=== PATIENT | male | born 1965 | race Hispanic/Latino ===

== ENCOUNTER 2016-08-24 12:04 | Emergency (ER) | payer MEDICARE ==
[2016-08-24 12:05] VITALS: BMI 25.0
[2016-08-24 12:16] VITALS: RESP 16; TEMP 98
--- NOTE | 2016-08-24 14:31 | C.PDOC ---
History Of Present Illness The patient, a 51 y/o male whose PMHx includes depression (taking medication as prescribed), presents to the ED for evaluation after he slipped and fell on the street earlier today. Patient states he fell onto his left side and now has pain to his left elbow, left thorax, and left hip region with associated bruising. Patient rates his pain 6/10 in severity, dull, constant, and is exacerbated with palpitation and movement. He states the pain is non-radiating. Patient denies fever, chills, headache, nausea, vomiting, head injury, LOC. Time Seen by Provider: 08/24/16 12:25 Chief Complaint (Nursing): Lower Extremity Problem/Injury History Per: Patient History/Exam Limitations: no limitations Onset/Duration Of Symptoms: Hrs Current Symptoms Are (Timing): Still Present Pain Scale Rating Of: 6 Additional History Per: Patient - Hip Description Of Injury: Fell, Tripped Past Medical History Reviewed: Historical Data, Nursing Documentation, Vital Signs Vital Signs: Last Vital Signs Temp 98.0 F 08/24/16 12:15 Pulse 74 08/24/16 14:40 Resp 16 08/24/16 14:40 BP 121/74 08/24/16 14:40 Pulse Ox 99 08/24/16 22:23 - Medical History PMH: Anemia, Anxiety, Asthma (NO ATTACKS), Bipolar Disorder, Bronchitis, Depression Surgical History: Hernia Repair (ventral) - [facility] Procedures CLOSED ENDOSCOPIC BIOPSY OF LARGE INTESTINE (02/22/05) INSERT INDWELLING CATH (10/13/11) Family History: States: Unknown Family Hx - Social History Hx Alcohol Use: No Hx Substance Use: No - Immunization History Hx Tetanus Toxoid Vaccination: No Hx Influenza Vaccination: No Hx Pneumococcal Vaccination: No Review Of Systems Except As Marked, All Systems Reviewed And Found Negative. Constitutional: Negative for: Fever, Chills Musculoskeletal: Positive for: Other (left hip, thorax and elbow pain with bruising ) Neurological: Negative for: Headache, Other (no LOC, head injury ) Physical Exam - Physical Exam Appears: Non-toxic, No Acute Distress, Unkempt, Other (+disheveled ) Skin: Warm, Dry, Ecchymosis (left elbow, left hip ) Head: Atraumatic, Normacephalic, No Tenderness, No Swelling Eye(s): bilateral: Normal Inspection, PERRL, EOMI Ear(s): Bilateral: Normal Nose: Normal, No Discharge Oral Mucosa: Moist Throat: Normal, No Erythema, No Exudate Neck: Normal ROM, Supple Chest: Symmetrical, No Deformity, Tenderness (alongside left thoracic region ) Cardiovascular: Rhythm Regular, No Murmur Respiratory: Normal Breath Sounds, No Rales, No Rhonchi, No Wheezing Extremity: Tenderness (left elbow, left hip ), No Calf Tenderness, Capillary Refill (less than 2 seconds ), No Deformity, Swelling (left elbow ) Pulses: Left Femoral: Normal, Right Femoral: Normal Neurological/Psych: Oriented x3, Normal Speech, Normal Cognition Gait: Steady ED Course And Treatment O2 Sat by Pulse Oximetry: 99 (on RA) Pulse Ox Interpretation: Normal - Other Rad XR ribs and chest X-Ray: Interpreted by Me, Viewed By Me, Read By Radiologist Interpretation: Accession No. : [id number]. Patient Name / ID : CELESTINE ZAPATA / [id number]. Exam Date : 08/24/2016 13:10:28 ( Approved ). Study Comment : Sex / Age : M / 51Y. Creator : Lynn Ferrara. Dictator : Lynn Ferrara. Space Operations : Commission Clerk : Lynn Ferrara. Approver2 : Report Date : 08/24/2016 15:19:16. My Comment : . PROCEDURE: Radiographs of the Chest and Left Ribs. HISTORY: fall. COMPARISON: None available. TECHNIQUE: Frontal radiograph of the chest and multiple oblique radiographs of the left ribs were obtained. FINDINGS: LEFT RIBS: No fracture or focal lesion visualized. LUNGS: Clear. PLEURA: No pneumothorax or pleural fluid. CARDIOVASCULAR: Normal sized heart. No pulmonary vascular congestion. OTHER FINDINGS: None. IMPRESSION: No evidence of acute displaced fracture at the left ribs. No evidence of pleural effusion or pneumothorax in the left chest. hips and pelvis XR X-Ray: Interpreted by Me, Viewed By Me, Read By Radiologist Interpretation: Accession No. : [id number]. Patient Name / ID : CELESTINE ZAPATA / [id number]. Exam Date : 08/24/2016 13:15:03 ( Approved ). Study Comment : Sex / Age : M / 51Y. Creator : Lynn Ferrara. Dictator : Lynn Ferrara. Space Operations : Commission Clerk : Lynn Ferrara. Approver2 : Report Date : 08/24/2016 15:11:26. My Comment : . PROCEDURE: Left Hip X-ray Radiographs. HISTORY: fall. COMPARISON: None. FINDINGS: BONES: Normal. No fracture. JOINTS: Normal. SOFT TISSUES: Normal. OTHER FINDINGS: None. IMPRESSION: No evidence of acute fracture or dislocation. Medical Decision Making Medical Decision Making: Impression: 51 y/o male with left elbow, thorax, and hip pain s/p fall Plan: * Left ribs and chest XR * Hips XR * Motrin PO * Tylenol PO * reassess and disposition Progress: XR results show no evidence of fracture. Patient received Motrin PO and Tylenol PO On reassessment, patient is resting comfortably, showing no signs of distress, and is ambulatory in the ED. Patient is stable for discharge and is advised to follow up with his PMD within 1-2 days for further evaluation. Disposition Counseled Patient/Family Regarding: Studies Performed, Diagnosis, Need For Followup, Rx Given - Disposition Disposition: HOME/ ROUTINE Disposition Time: 14:29 Condition: STABLE Prescriptions: Ibuprofen [Motrin] 600 mg PO TID #15 tab traMADol/Acetaminophen [Ultracet 37.5/325 mg] 1 tab PO TID PRN #10 tab PRN Reason: pain Instructions: Hip Contusion (ED), Rib Contusion (ED) Forms: General Discharge Instructions - POA Present On Arrival: None - Clinical Impression Clinical Impression: Rib pain, Fall, Contusion of left hip region - Scribe Statement The provider has reviewed the documentation as recorded by the Scribe (Sherrill Gonzalez) Provider Attestation: All medical record entries made by the Scribe were at my direction and personally dictated by me. I have reviewed the chart and agree that the record accurately reflects my personal performance of the history, physical exam, medical decision making, and the department course for this patient. I have also personally directed, reviewed, and agree with the discharge instructions and disposition.
[2016-08-24 14:40] VITALS: BP 121/74; PULSE 74
--- NOTE | 2016-08-24 15:13 | RAD ---
PROCEDURE: Left Hip X-ray Radiographs. HISTORY: fall COMPARISON: None. FINDINGS: BONES: Normal. No fracture. JOINTS: Normal. SOFT TISSUES: Normal. OTHER FINDINGS: None. IMPRESSION: No evidence of acute fracture or dislocation.
--- NOTE | 2016-08-24 15:21 | RAD ---
PROCEDURE: Radiographs of the Chest and Left Ribs. HISTORY: fall COMPARISON: None available. TECHNIQUE: Frontal radiograph of the chest and multiple oblique radiographs of the left ribs were obtained. FINDINGS: LEFT RIBS: No fracture or focal lesion visualized. LUNGS: Clear. PLEURA: No pneumothorax or pleural fluid. CARDIOVASCULAR: Normal sized heart. No pulmonary vascular congestion. OTHER FINDINGS: None. IMPRESSION: No evidence of acute displaced fracture at the left ribs. No evidence of pleural effusion or pneumothorax in the left chest.
[2016-08-24 18:23] VITALS: O2SAT 99
== END 2016-08-24 14:40 | disposition home or self-care (01) ==
LOC: C.ER 12:04
DX: S70.02XA Contusion of left hip, initial encounter (principal); R07.81 Pleurodynia; W01.0XXA Fall on same level from slipping, tripping and stumbling without subsequent striking against object, initial encounter; Y92.410 Unspecified street and highway as the place of occurrence of the external cause

== ENCOUNTER 2016-12-27 14:07 | Emergency (ER) | payer MEDICARE ==
[2016-12-27 14:16] VITALS: BMI 22.7
[2016-12-27 14:17] VITALS: O2SAT 98
[2016-12-27] MEDS ORDERED: Alum-Mag Hydrox-Simethicone Susp (30 mL) PO STA (15:25)
[2016-12-27 15:39] LABS: BASO % 0.3 % (0.0-2.0); EOS % 0.7 % (0.0-4.0); HEMATOCRIT 28.6 % (35.0-51.0); LYMPH # 0.4 K/uL (1.0-4.3); LYMPH % 6.8 % (20.0-40.0); MEAN CELL VOLUME 88.5 fL (80.0-94.0); MEAN CORPUSCULAR HEMOGLOBIN 29.9 pg (27.0-31.0); MEAN CORPUSCULAR HGB CONC 33.8 g/dL (33.0-37.0); MEAN PLATELET VOLUME 7.8 fL (7.2-11.7); MONO # 0.3 K/uL (0.0-0.8); MONO % 4.5 % (0.0-10.0); PLATELET COUNT 248 K/uL (130-400); RED CELL DISTRIBUTION WIDTH 13.7 % (11.5-14.5)
[2016-12-27 15:56] LABS: BASOPHIL 1 % (0-2); EOSINOPHIL 1 % (0-4); NEUTROPHIL 88 % (50-75); TOTAL CELLS COUNTED 100
[2016-12-27 15:57] LABS: LARGE PLATELETS PRESENT
--- NOTE | 2016-12-27 15:57 | RAD ---
HISTORY: SOB COMPARISON: Chest and left ribs x-ray performed 08/24/16 TECHNIQUE: Chest PA and lateral FINDINGS: LUNGS: Hypoinflation. No focal consolidation. Please note that chest x-ray has limited sensitivity for the detection of pulmonary masses. PLEURA: No significant pleural effusion identified. No definite pneumothorax . CARDIOVASCULAR: Heart size appears within normal limits. OSSEOUS STRUCTURES: Degenerative changes. VISUALIZED UPPER ABDOMEN: Unremarkable. OTHER FINDINGS: None. IMPRESSION: Hypoinflation.
[2016-12-27] MEDS ORDERED: Aluminum Hydroxide/Magnesium Hydroxide Susp (30 mL) ONE (16:05)
[2016-12-27 16:09] LABS: ALB/GLOB RATIO 0.8 (1.0-2.1); ALKALINE PHOSPHATASE 64 U/L (38-126); ALT/SGPT 20 U/L (21-72); AST/SGOT 25 U/L (17-59); BILIRUBIN,TOTAL 0.3 mg/dL (0.2-1.3); BLOOD UREA NITROGEN 18 mg/dL (9-20); CALCIUM 8.8 mg/dl (8.6-10.4); CARBON DIOXIDE 22 mmol/L (22-30); CHLORIDE 102 mmol/L (98-107); GFR AFRICAN-AMERICAN > 60; GLUCOSE,RANDOM 103 mg/dL (75-110); SODIUM 136 mmol/L (132-148); TOTAL PROTEIN 6.9 g/dL (6.3-8.3)
--- NOTE | 2016-12-27 16:38 | C.PDOC ---
History Of Present Illness 51 y/o male presents to ED with c/o chest and back pain. Review of prior records shows patient with many prior ER evaluations for similar complaints. Patient notes he has been taking low dose prednisone; unclear if compliant with PPI. Denies rash, fever, chills, SOB, nausea, vomiting, or other associated symptoms. Denies trauma or injury. Time Seen by Provider: 12/27/16 14:36 Chief Complaint (Nursing): Pain, Chronic History Per: Patient History/Exam Limitations: no limitations Onset/Duration Of Symptoms: Persistent Current Symptoms Are (Timing): Still Present Recent travel outside of the [place]: No Past Medical History Reviewed: Historical Data, Nursing Documentation, Vital Signs Vital Signs: Last Vital Signs Temp 98.1 F 12/27/16 14:16 Pulse 110 H 12/27/16 14:16 Resp 18 12/27/16 14:16 BP 120/79 12/27/16 14:16 Pulse Ox 98 12/27/16 16:38 - Medical History PMH: Anemia, Anxiety, Asthma (NO ATTACKS), Bipolar Disorder, Bronchitis, Depression Surgical History: Hernia Repair (ventral) - [facility] Procedures CLOSED ENDOSCOPIC BIOPSY OF LARGE INTESTINE (02/22/05) INSERT INDWELLING CATH (10/13/11) Family History: States: Unknown Family Hx - Social History Hx Alcohol Use: No Hx Substance Use: No - Immunization History Hx Tetanus Toxoid Vaccination: No Hx Influenza Vaccination: No Hx Pneumococcal Vaccination: No Review Of Systems Except As Marked, All Systems Reviewed And Found Negative. Constitutional: Negative for: Fever, Chills Cardiovascular: Positive for: Chest Pain Respiratory: Negative for: Cough, Shortness of Breath, Wheezing Gastrointestinal: Negative for: Nausea, Vomiting, Abdominal Pain Musculoskeletal: Positive for: Back Pain. Negative for: Neck Pain Skin: Negative for: Rash Neurological: Negative for: Headache, Dizziness Physical Exam - Physical Exam Appears: Non-toxic, No Acute Distress Skin: Normal Color, Warm, Dry Head: Atraumatic, Normacephalic Oral Mucosa: Moist Neck: Normal ROM, Supple Chest: Symmetrical, Tenderness (digitally reproducible pain left parasternal border T4) Cardiovascular: Rhythm Regular, No Murmur Respiratory: Normal Breath Sounds, No Rales, No Rhonchi, No Wheezing Gastrointestinal/Abdominal: Soft, No Tenderness, No Guarding, No Rebound Back: No Vertebral Tenderness, Paraspinal Tenderness (T8 area) Extremity: Normal ROM, Capillary Refill (< 2 sec.), No Swelling Extremity: Bilateral: Normal Color And Temperature Neurological/Psych: Oriented x3, Normal Speech, Normal Cognition ED Course And Treatment - Laboratory Results Result Diagrams: 12/27/16 15:36 12/27/16 15:36 Lab Interpretation: Abnormal (+ chronic anemia) ECG: Interpreted By Me ECG Rhythm: Sinus Tachycardia ECG Interpretation: Abnormal Rate From EC O2 Sat by Pulse Oximetry: 98 Pulse Ox Interpretation: Normal - Radiology CXR: Interpreted by Me CXR Interpretation: Yes: No Acute Disease Progress Note: Maalox, Pepcid, Toradol given. UA, EKG, bloodwork, CxR ordered and reviewed. Reevaluation Time: 16:36 Reassessment Condition: Improved Medical Decision Making Medical Decision Making: digitally and positionally reproducable L parasternal chest wall discomfort and L paraspinal erector muscle tenderness c/w costochondritis, normal EKG/cardiac labs/CXR, improved with NSAIDS Cautioned to maintain PPI therapy while on daily prednisone Disposition Doctor Will See Patient In The: Office Counseled Patient/Family Regarding: Studies Performed, Diagnosis - Disposition Referrals: Isael Edouard MD [Staff Provider] - Disposition: HOME/ ROUTINE Disposition Time: 16:38 Condition: GOOD Additional Instructions: continue motrin 400-600 mg every 6 hours as needed for chest wall discomfort Continue Pepcid 20 mg @ night or Protonix 20-40 mg daily to prevent stomach irritation from the Motrin/Prednisone you take daily Follow-up with Dr. Edouard as usual. Instructions: Costochondritis (ED) Forms: [employer] (Icelandic) - Clinical Impression Clinical Impression: Thoracic back pain, Chest wall pain - Scribe Statement The provider has reviewed the documentation as recorded by the Scribe SM All medical record entries made by the Scribe were at my direction and personally dictated by me. I have reviewed the chart and agree that the record accurately reflects my personal performance of the history, physical exam, medical decision making, and the department course for this patient. I have also personally directed, reviewed, and agree with the discharge instructions and disposition.
[2016-12-27 16:46] VITALS: BP 124/84; PULSE 91; RESP 14; TEMP 99.9
[2016-12-27 16:48] LABS: RBC URINE 5 /hpf (0-3); URINE BACTERIA OCC (<OCC); URINE BILIRUBIN NEGATIVE (NEGATIVE); URINE BLOOD 1+ (NEGATIVE); URINE COLOR Yellow (YELLOW); URINE GLUCOSE (UA) NORMAL (Normal); URINE KETONE NEGATIVE (NEGATIVE); URINE LEUKOCYTE ESTERASE NEG Leu/uL (Negative); URINE PROTEIN 2+ mg/dL (NEGATIVE); URINE UROBILINOGEN NORMAL mg/dL (0.2-1.0); WBC URINE 5 /hpf (0-5)
--- NOTE | 2016-12-29 18:19 | CARD ---
APPROVED REPORT EKG Measurement Heart [id number] NH [id number] <Conclusion> Sinus tachycardia Otherwise normal ECG
== END 2016-12-27 17:03 | disposition home or self-care (01) ==
LOC: C.ER 14:07
DX: M54.6 Pain in thoracic spine (principal); R07.89 Other chest pain
CPT/HCPCS: 71020; 80053; 81001; 84484; 85025; 93005; 96374; 96375; 99285; J1885

== ENCOUNTER 2017-01-09 17:37 | Emergency (ER) | payer MEDICARE ==
[2017-01-09 17:37] VITALS: BMI 22.7
[2017-01-09 17:44] VITALS: TEMP 98.2
[2017-01-09] MEDS ORDERED: Sodium Chloride 0.9% 1,000 ML IV ONE (19:18)
--- NOTE | 2017-01-09 19:19 | C.PDOC ---
History Of Present Illness Patient presents to the ER with a complaint of abdominal pain and back pain for the past few days. Patient reports he has been vomiting intermittently over the past month and has had numerous work ups in the past for similar complaints. Denies fever, chills, or diarrhea. Time Seen by Provider: 01/09/17 19:17 Chief Complaint (Nursing): Abdominal Pain History Per: Patient History/Exam Limitations: no limitations Onset/Duration Of Symptoms: Days, Intermittent Episodes Current Symptoms Are (Timing): Still Present Severity: Mild Pain Scale Rating Of: 4 Radiation Of Pain To:: None Quality Of Discomfort: Unable To Describe Associated Symptoms: Vomiting, Back Pain. denies: Fever, Chills, Diarrhea Exacerbating Factors: None Alleviating Factors: None Recent travel outside of the [place]: No Past Medical History Reviewed: Historical Data, Nursing Documentation, Vital Signs Vital Signs: Last Vital Signs Temp 98.2 F 01/09/17 17:41 Pulse 86 01/09/17 23:31 Resp 18 01/09/17 23:31 BP 146/92 H 01/09/17 23:31 Pulse Ox 97 01/09/17 23:31 - Medical History PMH: Anemia, Anxiety, Asthma (NO ATTACKS), Bipolar Disorder, Bronchitis, Depression Surgical History: Hernia Repair (ventral) - [facility] Procedures CLOSED ENDOSCOPIC BIOPSY OF LARGE INTESTINE (02/22/05) INSERT INDWELLING CATH (10/13/11) Family History: States: No Known Family Hx - Social History Hx Alcohol Use: No Hx Substance Use: No - Immunization History Hx Tetanus Toxoid Vaccination: No Hx Influenza Vaccination: No Hx Pneumococcal Vaccination: No Review Of Systems Constitutional: Negative for: Fever, Chills Gastrointestinal: Positive for: Vomiting, Abdominal Pain. Negative for: Diarrhea Musculoskeletal: Positive for: Back Pain Physical Exam - Physical Exam Appears: Non-toxic, Other (Awake, Alert) Skin: Warm, Dry Head: Normacephalic Oral Mucosa: Dry Chest: Symmetrical, No Tenderness Cardiovascular: Rhythm Regular Respiratory: No Rales, No Rhonchi, No Wheezing Gastrointestinal/Abdominal: Soft, No Tenderness Neurological/Psych: Oriented x3 ED Course And Treatment - Laboratory Results Result Diagrams: 01/09/17 19:36 01/09/17 19:36 O2 Sat by Pulse Oximetry: 98 (Room air) Pulse Ox Interpretation: Normal Progress Note: Blood work and urinalysis ordered. Pepcid, zofran, and IV fluids administered. Disposition Counseled Patient/Family Regarding: Studies Performed, Diagnosis, Need For Followup - Disposition Referrals: Isael Kwan MD [Staff Provider] - Disposition: HOME/ ROUTINE Disposition Time: 19:18 Condition: FAIR Prescriptions: Ondansetron ODT [Zofran ODT] 1 odt PO BID PRN #6 odt PRN Reason: Nausea/Vomiting Instructions: Abdominal Pain (ED), Acute Nausea and Vomiting (ED) Forms: [employer] (Tajik) - Clinical Impression Clinical Impression: Abdominal discomfort, Nausea & vomiting - Scribe Statement The provider has reviewed the documentation as recorded by the Scribe Erasmo Borden All medical record entries made by the Scribe were at my direction and personally dictated by me. I have reviewed the chart and agree that the record accurately reflects my personal performance of the history, physical exam, medical decision making, and the department course for this patient. I have also personally directed, reviewed, and agree with the discharge instructions and disposition.
[2017-01-09 19:39] LABS: BASO % 0.5 % (0.0-2.0); EOS % 0.5 % (0.0-4.0); HEMATOCRIT 26.5 % (35.0-51.0); LYMPH # 0.6 K/uL (1.0-4.3); LYMPH % 14.1 % (20.0-40.0); MEAN CELL VOLUME 87.3 fL (80.0-94.0); MEAN CORPUSCULAR HEMOGLOBIN 29.9 pg (27.0-31.0); MEAN CORPUSCULAR HGB CONC 34.3 g/dL (33.0-37.0); MEAN PLATELET VOLUME 7.4 fL (7.2-11.7); MONO # 0.3 K/uL (0.0-0.8); MONO % 6.3 % (0.0-10.0); NRBC % 0.1 % (0.0-2.0); RED CELL DISTRIBUTION WIDTH 14.4 % (11.5-14.5)
[2017-01-09 19:47] LABS: RBC URINE 9 /hpf (0-3); TRANSITIONAL EPITHIAL < 1 /hpf (0-3); URINE BACTERIA RARE (<OCC); URINE BILIRUBIN NEGATIVE (NEGATIVE); URINE BLOOD 1+ (NEGATIVE); URINE COLOR Yellow (YELLOW); URINE GLUCOSE (UA) NORMAL (Normal); URINE KETONE NEGATIVE (NEGATIVE); URINE LEUKOCYTE ESTERASE NEG Leu/uL (Negative); URINE PROTEIN 2+ mg/dL (NEGATIVE); URINE UROBILINOGEN NORMAL mg/dL (0.2-1.0); WBC URINE 2 /hpf (0-5)
[2017-01-09 19:48] LABS: CHLORIDE 99 mmol/L (98-107); POTASSIUM 4.4 mmol/L (3.6-5.2); SODIUM 132 mmol/L (132-148)
[2017-01-09 19:51] LABS: ALB/GLOB RATIO 0.9 (1.0-2.1); ALKALINE PHOSPHATASE 57 U/L (38-126); ALT/SGPT 19 U/L (21-72); AST/SGOT 27 U/L (17-59); BILIRUBIN,TOTAL 0.5 mg/dL (0.2-1.3); BLOOD UREA NITROGEN 13 mg/dL (9-20); CALCIUM 8.7 mg/dl (8.6-10.4); CARBON DIOXIDE 23 mmol/L (22-30); GFR AFRICAN-AMERICAN > 60; GLUCOSE,RANDOM 102 mg/dL (75-110); TOTAL PROTEIN 7.4 g/dL (6.3-8.3)
[2017-01-09] MEDS ORDERED: Sodium Chloride 0.9% 1,000 ML ONE (20:14)
[2017-01-09] MEDS ORDERED: Iohexol 350mg/ml 100 ML ONE (21:37)
[2017-01-09 23:17] VITALS: RESP 18
--- NOTE | 2017-01-09 23:17 | CT ---
EXAM: CT Abdomen and Pelvis With Intravenous Contrast EXAM DATE/TIME: 01/09/2017 9:16 PM CLINICAL HISTORY: 51 years old, male; Pain; Abdominal pain; Flank; Left lower quadrant (llq); Additional info: Abdominal pain, nausea, vomiting TECHNIQUE: Axial computed tomography images of the abdomen and pelvis with intravenous contrast. All CT scans at this facility use one or more dose reduction techniques, viz.: automated exposure control; ma/kV adjustment per patient size (including targeted exams where dose is matched to indication; i.e. head); or iterative reconstruction technique. Coronal and sagittal reformatted images were created and reviewed. CONTRAST: 100 mL of omnipaque 350 administered intravenously. COMPARISON: There are no prior studies for comparison. FINDINGS: Lower thorax: Heart size is at the limits of normal. There is a small left pleural effusion which may be partially loculated. There is adjacent airspace disease. There is minimal atelectasis at the right base. There is a small hiatal hernia. ABDOMEN: Liver: There is fatty infiltration of the liver. There is a cyst in the liver. Gallbladder and bile ducts: Gallbladder is collapsed. Common duct is unremarkable. Pancreas: Pancreas is mildly atrophic. Spleen: unremarkable Adrenals: unremarkable Kidneys and ureters: There are multiple small peripheral low attenuation renal lesions too small to characterize.Kidneys and ureters are otherwise unremarkable. Stomach and bowel: Stomach is partially distended. Rotation is normal. Proximal and mid small bowel is mildly distended. There is duodenal and proximal jejunal wall and fold thickening. Distention decreases distally. There is no obstruction. Terminal ileum is unremarkable. is unremarkable. There is moderate stool in the right colon. Left colon is collapsed. Appendix: See stomach and bowel PELVIS: Bladder: Bladder is partially distended. Reproductive: The prostate is mildly enlarged. There is prominence of the seminal vesicles. ABDOMEN and PELVIS: Intraperitoneal space: There is no free air or free fluid. Bones/joints: There are degenerative changes in the osseus structures. There is bilateral L5 spondylolysis with grade 2 spondylolisthesis. There is posterior disc space narrowing L5-S1 with disc bulging. Soft tissues: There is a small fat containing umbilical hernia. There is a small fat containing left inguinal hernia. There is minimal increased attenuation and herniated fat. Vasculature: There are vascular calcifications. Lymph nodes: There is no pathologic adenopathy. IMPRESSION: Fatty liver, no acute solid visceral abnormality; no renal or ureteral stones or hydronephrosis; possible enteritis, no obstruction; small fat containing left inguinal hernia with possible incarceration Additional findings as described above.
[2017-01-10] VITALS: BP 145/89; PULSE 91; O2SAT 97
== END 2017-01-10 00:01 | disposition home or self-care (01) ==
LOC: C.ER 17:37
DX: R11.2 Nausea with vomiting, unspecified (principal); R10.9 Unspecified abdominal pain; D64.9 Anemia, unspecified
CPT/HCPCS: 74177; 80053; 81001; 83690; 85025; 96361; 96374; 96375; 99285; J2405; J7040; Q9967

== ENCOUNTER 2017-03-04 16:26 | Inpatient (IN) | payer MEDICARE ==
[2017-03-04 16:27] VITALS: BMI 22.7
[2017-03-04 17:01] LABS: BASO % 0.3 % (0.0-2.0); EOS % 0.1 % (0.0-4.0); HEMATOCRIT 27.8 % (35.0-51.0); LYMPH # 0.2 K/uL (1.0-4.3); LYMPH % 3.1 % (20.0-40.0); MEAN CORPUSCULAR HEMOGLOBIN 30.6 pg (27.0-31.0); MEAN CORPUSCULAR HGB CONC 34.1 g/dL (33.0-37.0); MEAN PLATELET VOLUME 7.8 fL (7.2-11.7); MONO # 0.2 K/uL (0.0-0.8); MONO % 4.3 % (0.0-10.0); PLATELET COUNT 133 K/uL (130-400); RED CELL DISTRIBUTION WIDTH 18.5 % (11.5-14.5); WHITE BLOOD COUNT 5.5 K/uL (4.8-10.8)
[2017-03-04 17:06] LABS: MEAN CELL VOLUME 89.7 fL (80.0-94.0)
[2017-03-04 17:11] LABS: CHLORIDE 95 mmol/L (98-107)
[2017-03-04 17:12] LABS: POTASSIUM 4.3 mmol/L (3.6-5.2); SODIUM 124 mmol/L (132-148)
[2017-03-04 17:14] LABS: BILIRUBIN,TOTAL 0.5 mg/dL (0.2-1.3); CARBON DIOXIDE 22 mmol/L (22-30); GFR AFRICAN-AMERICAN > 60
[2017-03-04 17:15] LABS: ALB/GLOB RATIO 0.8 (1.0-2.1); ALKALINE PHOSPHATASE 76 U/L (38-126); ALT/SGPT 28 U/L (21-72); AST/SGOT 19 U/L (17-59); BLOOD UREA NITROGEN 14 mg/dL (9-20); CALCIUM 7.8 mg/dl (8.6-10.4); GLUCOSE,RANDOM 112 mg/dL (75-110); TOTAL PROTEIN 6.7 g/dL (6.3-8.3)
--- NOTE | 2017-03-04 17:27 | RAD ---
PROCEDURE: CHEST RADIOGRAPH, 1 VIEW HISTORY: SOB COMPARISON: 12/27/2016. FINDINGS: LUNGS: The lungs are clear. PLEURA: No pneumothorax or pleural fluid seen. CARDIOVASCULAR: Normal. OSSEOUS STRUCTURES: No significant abnormalities. VISUALIZED UPPER ABDOMEN: Normal. OTHER FINDINGS: None. IMPRESSION: No active pulmonary disease.
[2017-03-04 17:36] LABS: NEUTROPHIL 90 % (50-75); TOTAL CELLS COUNTED 100
[2017-03-04] MEDS ORDERED: Sodium Chloride 0.9% 1,000 ML IV ONE (18:04)
--- NOTE | 2017-03-04 18:05 | C.PDOC ---
History Of Present Illness 51 year old male presents to the ED for evaluation of intermittent chest pain which began around 1 week ago. Patient states his pain is digitally and positionally reproducible at his sternum. Patient has had multiple prior evaluation for the same complaint. Patient has undergone three previous abdominal CT scan and had a recent admission for pneumonia at an outside hospital in [place], [place]. Patient denies shortness of breath, cough, nausea, vomiting, extremity numbness/weakness. Time Seen by Provider: 03/04/17 16:40 Chief Complaint (Nursing): Abdominal Pain History Per: Patient History/Exam Limitations: no limitations Onset/Duration Of Symptoms: Days (1 week ) Current Symptoms Are (Timing): Still Present Quality: "Pain" Associated Symptoms: denies: Nausea Additional History Per: Patient Past Medical History Reviewed: Historical Data, Nursing Documentation, Vital Signs Vital Signs: Last Vital Signs Temp 98.9 F 03/04/17 16:34 Pulse 100 H 03/04/17 16:34 Resp 20 03/04/17 16:34 BP 157/101 H 03/04/17 16:34 Pulse Ox 99 03/04/17 18:12 - Medical History PMH: Anemia, Anxiety, Asthma (NO ATTACKS), Bipolar Disorder, Bronchitis, Depression Surgical History: Hernia Repair (ventral) - [facility] Procedures CLOSED ENDOSCOPIC BIOPSY OF LARGE INTESTINE (02/22/05) INSERT INDWELLING CATH (10/13/11) Family History: States: Unknown Family Hx - Social History Hx Alcohol Use: No Hx Substance Use: No - Immunization History Hx Tetanus Toxoid Vaccination: Yes Hx Influenza Vaccination: No Hx Pneumococcal Vaccination: No Review Of Systems Cardiovascular: Positive for: Chest Pain Respiratory: Negative for: Cough, Shortness of Breath Gastrointestinal: Negative for: Nausea, Vomiting Neurological: Negative for: Weakness, Numbness Physical Exam - Physical Exam Appears: Non-toxic, No Acute Distress, Other (thin ) Skin: Normal Color, Warm, Dry Head: Atraumatic, Normacephalic Eye(s): bilateral: Normal Inspection Oral Mucosa: Moist Neck: Supple Chest: Symmetrical, No Deformity, Other (digitally reproducible pain to bilateral parasternal regions ) Cardiovascular: Rhythm Regular, No Murmur Respiratory: Normal Breath Sounds, No Rales, No Rhonchi, No Wheezing Extremity: Normal ROM, Capillary Refill (less than 2 seconds ) Neurological/Psych: Oriented x3, Normal Speech, Normal Cognition Gait: Steady ED Course And Treatment - Laboratory Results Result Diagrams: 03/04/17 16:56 03/04/17 16:56 O2 Sat by Pulse Oximetry: 99 (on RA) Pulse Ox Interpretation: Normal - Other Rad CXR X-Ray: Interpreted by Me, Viewed By Me, Read By Radiologist Interpretation: IMPRESSION: No active pulmonary disease. Progress Note: Bloodwork, UA, EKG, and CXR ordered and reviewed. EKG and CXR results are unremarkable. Toradol IVP administered. Disposition - Disposition Forms: [id number] (Yoruba) - Scribe Statement The provider has reviewed the documentation as recorded by the Scribe (Sherrill Gonzalez) Provider Attestation: All medical record entries made by the Scribe were at my direction and personally dictated by me. I have reviewed the chart and agree that the record accurately reflects my personal performance of the history, physical exam, medical decision making, and the department course for this patient. I have also personally directed, reviewed, and agree with the discharge instructions and disposition.
--- NOTE | 2017-03-04 18:18 | C.PDOC ---
History Of Present Illness 51 year old male presents to the ED for evaluation of intermittent chest pain which began around 1 week ago. Patient states his pain is digitally and positionally reproducible at his sternum. Patient has had multiple prior evaluation for the same complaint. Patient has undergone three previous abdominal CT scan and had a recent admission for pneumonia at an outside hospital in [place], [place]. Patient denies shortness of breath, cough, nausea, vomiting, extremity numbness/weakness. Time Seen by Provider: 03/04/17 16:40 Chief Complaint (Nursing): Abdominal Pain History Per: Patient History/Exam Limitations: no limitations Onset/Duration Of Symptoms: Intermittent Episodes (1 week) Current Symptoms Are (Timing): Still Present Quality: "Pain" Associated Symptoms: denies: Nausea Additional History Per: Patient Past Medical History Reviewed: Historical Data, Nursing Documentation, Vital Signs Vital Signs: Last Vital Signs Temp 98.9 F 03/04/17 16:34 Pulse 95 H 03/04/17 22:38 Resp 16 03/04/17 22:38 BP 142/85 03/04/17 22:38 Pulse Ox 99 03/04/17 22:45 - Medical History PMH: Anemia, Anxiety, Asthma (NO ATTACKS), Bipolar Disorder, Bronchitis, Depression Surgical History: Hernia Repair (ventral) - [facility] Procedures CLOSED ENDOSCOPIC BIOPSY OF LARGE INTESTINE (02/22/05) INSERT INDWELLING CATH (10/13/11) Family History: States: Unknown Family Hx - Social History Hx Alcohol Use: No Hx Substance Use: No - Immunization History Hx Tetanus Toxoid Vaccination: Yes Hx Influenza Vaccination: No Hx Pneumococcal Vaccination: No Review Of Systems Cardiovascular: Positive for: Chest Pain Respiratory: Negative for: Cough, Shortness of Breath Gastrointestinal: Negative for: Nausea, Vomiting Neurological: Negative for: Weakness, Numbness Physical Exam - Physical Exam Appears: Non-toxic, No Acute Distress, Other (thin) Skin: Normal Color, Warm, Dry Head: Atraumatic, Normacephalic Eye(s): bilateral: Normal Inspection Oral Mucosa: Moist Neck: Supple Chest: Symmetrical, No Deformity, Other (digitally reproducible pain to bilateral parasternal regions ) Cardiovascular: Rhythm Regular, No Murmur Respiratory: Normal Breath Sounds, No Rales, No Rhonchi, No Wheezing Extremity: Normal ROM, Capillary Refill (less than 2 seconds ) Neurological/Psych: Oriented x3, Normal Speech, Normal Cognition Gait: Steady ED Course And Treatment - Laboratory Results Result Diagrams: 03/04/17 16:56 03/04/17 16:56 Lab Interpretation: Normal (trop neg, baseline anemia) ECG: Interpreted By Me ECG Rhythm: Sinus Rhythm (ST101) ECG Interpretation: Normal Rate From EC O2 Sat by Pulse Oximetry: 99 (on RA) Pulse Ox Interpretation: Normal - Radiology CXR: Interpreted by Me CXR Interpretation: Yes: No Acute Disease - Other Rad CXR X-Ray: Interpreted by Me Progress Note: Bloodwork, UA, EKG, and CXR ordered and reviewed. Toradol IVP and IVF administered. Reevaluation Time: 18:14 Reassessment Condition: Improved - Physician Consult Information Outcome Of Conversation: 1800:d/w PMD, Dr. Adal tripp to tele obs Medical Decision Making Medical Decision Making: costochondritis, many presentations for same. cardiac w/u neg, toradol given, took ASA @ home. hyponatremia/hypochloremia, c/w mild dehydration, continue IVF Claims recent adm in [place] for PNA but labs/exam/CXR no s/s of PNA. cough related costochondritis? Disposition Doctor Will See Patient In The: Hospital Counseled Patient/Family Regarding: Studies Performed, Diagnosis - Disposition Disposition: HOSPITALIZED Disposition Time: 18:18 Condition: GOOD - Clinical Impression Clinical Impression: Chest discomfort, Dehydration - Scribe Statement The provider has reviewed the documentation as recorded by the Scribe (Sherrill Gonzalez) Provider Attestation: All medical record entries made by the Scribe were at my direction and personally dictated by me. I have reviewed the chart and agree that the record accurately reflects my personal performance of the history, physical exam, medical decision making, and the department course for this patient. I have also personally directed, reviewed, and agree with the discharge instructions and disposition.
[2017-03-04] MEDS ORDERED: Sodium Chloride 0.9% 1,000 ML ONE (18:19)
[2017-03-04] MEDS ORDERED: Patient's Own Control Med SL SCH (22:00)
[2017-03-05] MEDS: Ofloxacin 0.3% Ophth Soln OD SCH ×8 (00:45→21:09)
[2017-03-05 06:43] LABS: RBC URINE < 1 /hpf (0-3); URINE BILIRUBIN NEGATIVE (NEGATIVE); URINE BLOOD 1+ (NEGATIVE); URINE COLOR Straw (YELLOW); URINE GLUCOSE (UA) NORMAL (Normal); URINE KETONE NEGATIVE (NEGATIVE); URINE LEUKOCYTE ESTERASE NEG Leu/uL (Negative); URINE PROTEIN 1+ mg/dL (NEGATIVE); URINE UROBILINOGEN NORMAL mg/dL (0.2-1.0); WBC URINE 1 /hpf (0-5)
[2017-03-05] MEDS: Enoxaparin 30 mg Syringe SC SCH (09:32)
[2017-03-05] MEDS ORDERED: QUETIAPINE PO SCH (18:00)
[2017-03-05] MEDS: Sodium Chloride 0.9% 1,000 ML IV SCH (21:09)
[2017-03-05] MEDS ORDERED: (Novolin R) Insulin Human Regular 100 units/ml vial IV ONE (23:54)
[2017-03-06] MEDS: Ofloxacin 0.3% Ophth Soln OD SCH ×8 (00:12→21:54)
[2017-03-06] MEDS: Sodium Chloride 0.9% 1,000 ML IV SCH ×3 (05:15→16:30)
[2017-03-06 06:26] LABS: BASO % 1.2 % (0.0-2.0); EOS % 0.7 % (0.0-4.0); HEMATOCRIT 24.6 % (35.0-51.0); LYMPH # 0.5 K/uL (1.0-4.3); LYMPH % 12.8 % (20.0-40.0); MEAN CORPUSCULAR HEMOGLOBIN 30.9 pg (27.0-31.0); MEAN CORPUSCULAR HGB CONC 34.3 g/dL (33.0-37.0); MEAN PLATELET VOLUME 7.3 fL (7.2-11.7); MONO # 0.2 K/uL (0.0-0.8); MONO % 5.4 % (0.0-10.0); NRBC % 0.1 % (0.0-2.0); RED CELL DISTRIBUTION WIDTH 18.6 % (11.5-14.5); WHITE BLOOD COUNT 4.1 K/uL (4.8-10.8)
[2017-03-06 06:42] LABS: ALB/GLOB RATIO 0.7 (1.0-2.1); ALKALINE PHOSPHATASE 62 U/L (38-126); ALT/SGPT 32 U/L (21-72); AST/SGOT 14 U/L (17-59); BILIRUBIN,TOTAL 0.4 mg/dL (0.2-1.3); BLOOD UREA NITROGEN 19 mg/dL (9-20); CALCIUM 7.5 mg/dl (8.6-10.4); CARBON DIOXIDE 23 mmol/L (22-30); CHLORIDE 99 mmol/L (98-107); GFR AFRICAN-AMERICAN > 60; GLUCOSE,RANDOM 84 mg/dL (75-110); POTASSIUM 3.9 mmol/L (3.6-5.2); SODIUM 129 mmol/L (132-148); TOTAL PROTEIN 5.4 g/dL (6.3-8.3)
[2017-03-06] MEDS: Enoxaparin 30 mg Syringe SC SCH (09:09)
--- NOTE | 2017-03-06 11:17 | CP.PCM.PN ---
Subjective - Date & Time of Evaluation Date of Evaluation: 03/06/17 Time of Evaluation: 11:00 - Subjective Subjective: Progress note. Attending: Dr. Kwan. This is a 50 yo male with past medical hx of asthma, depression, bronchitis, community acquired pneumonia, lupus presenting with intermittent chest pain x 1 week. Patient states his pain is reproducible to touch. It was getting worse so he came to ER. It is not constant, it comes and goes. Patient has had multiple prior evaluations for the same complaint. He has been diagnosed with costochondritis. Patient has undergone three previous abdominal CT scan and had a recent admission for pneumonia at an outside hospital in [place], [place]. Patient denies shortness of breath, cough, nausea, vomiting, extremity numbness/ weakness. Pt seen and examined at bedside today. Pt was recently diagnosed with herpes keratitis and said his eye was bothering him today. He is on eye drops. He is also tachy this morning, will consult cardiology. Past medical hx: lupus, depression, asthma, bronchitis PSH: ventral hernia repair Allergies: NKDA FH: Denies significant family history Home meds: see JUN. Social hx: Denies smoking, drinking, drug use. Born in . Objective - Vital Signs/Intake and Output Vital Signs (last 24 hours): Temp Pulse Resp BP Pulse Ox 98 F 126 H 24 151/88 H 94 L 03/06/17 08:00 03/06/17 10:00 03/06/17 10:00 03/06/17 10:00 03/06/17 10:00 Intake and Output: 03/06/17 03/06/17 06:59 18:59 Intake Total 2000 200 Output Total 1300 450 Balance 700 -250 - Medications Medications: Current Medications Enoxaparin Sodium (Lovenox) 30 mg SC DAILY [facility] Last Admin: 03/06/17 09:09 Dose: 30 mg Home Med (Patient's Own Drops) 1 drop OD Q3 [facility] Hydroxychloroquine Sulfate (Plaquenil) 200 mg PO BID [facility] Last Admin: 03/06/17 09:09 Dose: 200 mg Sodium Chloride (Sodium Chloride 0.9%) 1,000 mls @ 100 mls/hr IV .Q10H [facility] Last Admin: 03/06/17 05:15 Dose: 100 mls/hr Ketorolac Tromethamine (Toradol) 30 mg IVP Q8 PRN PRN Reason: Pain, moderate (4-7) Stop: 03/06/17 21:21 Last Admin: 03/06/17 00:11 Dose: 30 mg Mycophenolate Mofetil (Cellcept) 500 mg PO DAILY [facility] Last Admin: 03/06/17 09:09 Dose: 500 mg Ofloxacin (Ocuflox Ophth 0.3%) 0 ml OD Q3H [facility] Last Admin: 03/06/17 09:09 Dose: 1 drop Pantoprazole Sodium (Protonix Inj) 40 mg IVP DAILY [facility] Last Admin: 03/06/17 09:08 Dose: 40 mg Prednisone (Prednisone Tab) 10 mg PO DAILY [facility] Last Admin: 03/06/17 09:09 Dose: 10 mg Quetiapine Fumarate (Seroquel) 500 mg PO QPM [facility] Last Admin: 03/05/17 17:18 Dose: 500 mg Trazodone HCl (Desyrel) 150 mg PO QPM [facility] Last Admin: 03/05/17 17:17 Dose: 150 mg Valacyclovir HCl (Valtrex) 500 mg PO TID [facility] Last Admin: 03/06/17 09:09 Dose: 500 mg Zolpidem Tartrate (Ambien) 5 mg PO QPM PRN PRN Reason: Insomnia Last Admin: 03/05/17 21:08 Dose: 5 mg - Labs Labs: 03/06/17 06:19 03/06/17 06:19 - Constitutional Appears: Non-toxic, No Acute Distress, Chronically Ill - Head Exam Head Exam: ATRAUMATIC, NORMAL INSPECTION, NORMOCEPHALIC - Eye Exam Eye Exam: EOMI. absent: Normal appearance Additional comments: right eye with some erythema and tearing - ENT Exam ENT Exam: Mucous Membranes Moist - Neck Exam Neck Exam: Full ROM, Normal Inspection - Respiratory Exam Respiratory Exam: NORMAL BREATHING PATTERN. absent: Respiratory Distress - Cardiovascular Exam Cardiovascular Exam: +S1, +S2 - GI/Abdominal Exam GI & Abdominal Exam: Soft, Normal Bowel Sounds. absent: Tenderness - Extremities Exam Extremities Exam: Full ROM, Normal Inspection - Neurological Exam Neurological Exam: Alert, Awake, Oriented x3 - Psychiatric Exam Psychiatric exam: Depressed, Flat Affect - Skin Skin Exam: Dry, Intact, Normal Color, Warm Assessment and Plan - Assessment and Plan (Free Text) Assessment: This is a 51 yo male with past medical hx of lupus, depression, asthma, bronchitis, community acquired pneumonia 1. Chest pain -cardiac workup negative thus far. -trop negative -lovenox 30 daily -ketorolac 30 IV q 8 prn -pt has been tachycardic, with rate in 120s -EKG shows sinus tachy was LVH pattern -will order echo -cardio consult. Dr. Mejia. recs appreciated. 1.5. HTN -will start norvasc 10 daily 2. Hyponatremia -IV fluids 100 cc/hr -improving 3. hx of lupus -rheumatology consult. Dr. Staton. recs appreciated. -mycophenolate 500 PO daily -plaquenil 200 PO BID -prednisone 10 daily 3.5 Leukopenia -common in lupus -may reflect active disease -continue to monitor 4. iritis/herpes keratitis -oxfloxacin eye drops -valtrex 500 po tid -ziragan drops q 3 5. insomnia -ambien 5 po hs 6. hx of depression/bipolar -seroquel 500 po q pm 7. GI/DVT ppx -protonix 40 daily -lovenox [address] Kwan
--- NOTE | 2017-03-06 13:55 | CARD ---
APPROVED REPORT EKG Measurement Heart [id number] <Conclusion> Sinus tachycardia Minimal voltage criteria for LVH, may be normal variant Borderline ECG
[2017-03-06] MEDS: ZIRGAN 0.15% OD SCH ×3 (16:30→21:54)
--- NOTE | 2017-03-06 18:03 | CP.PCM.CON ---
History of Present Illness - History of Present Illness History of Present Illness: I was asked to see patient by Dr Kwan. Patient is a 51 year old male with PMH HTN, Lupus who presents with chest pain. The patient had had previous admissions for cough, chest pain. He was thought to have costochnodritis. The patient complains of a pressure in the cneter and right side of the chest which occurs withdeep inspiration, Symptoms are bilateral. There is no current cough. Review of Systems - Constitutional Constitutional: absent: As Per HPI, Anorexia, Chills, Daytime Sleepiness, Excessive Sweating, Fatigue, Fever, Frequent Falls, Headache, Increased Appetite , Lethargy, Malaise, Night Sweats, Snoring, Sleep Apnea, Weight Gain, Weight Loss, Weakness, Other - EENT Eyes: absent: As Per HPI, Blind Spots, Blurred Vision, Change in Vision, Decreased Night Vision, Diplopia, Discharge, Dry Eye, Exophthalmos, Floaters, Irritation, Itchy Eyes, Loss of Peripheral Vision, Pain, Photophobia, Requires Corrective Lenses, Sees Flashes, Spots in Vision, Tunnel Vision, Other Visual Disturbances, Loss of Vision, Other Ears: absent: As Per HPI, Decreased Hearing, Ear Discharge, Ear Pain, Tinnitus, Abnormal Hearing, Disequilibrium, Dizziness, Other Nose/Mouth/Throat: absent: As Per HPI, Epistaxis, Nasal Congestion, Nasal Discharge, Nasal Obstruction, Nasal Trauma, Nose Pain, Post Nasal Drip, Sinus Pain, Sinus Pressure, Bleeding Gums, Change in Voice, Dental Pain, Dry Mouth, Dysphagia, Halitosis, Hoarsness, Lip Swelling, Mouth Lesions, Mouth Pain, Odynophagia, Sore Throat, Throat Swelling, Tongue Swelling, Facial Pain, Neck Pain, Neck Mass, Other - Cardiovascular Cardiovascular: absent: As Per HPI, Acrocyanosis, Chest Pain, Chest Pain at Rest , Chest Pain with Activity, Claudication, Diaphoresis, Dyspnea, Dyspnea on Exertion, Edema, Irregular Heart Rhythm, Pain Radiating to Arm/Neck/Jaw, Leg Edema, Leg Ulcers, Lightheadedness, Orthopnea, Palpitations, Paroxysmal Nocturnal Dyspnea, Pedal Edema, Radiating Pain, Rapid Heart Rate, Slow Heart Rate, Syncope, Other - Respiratory Respiratory: absent: As Per HPI, Cough, Dyspnea, Hemoptysis, Dyspnea on Exertion , Wheezing, Snoring, Stridor, Pain on Inspiration, Chest Congestion, Excessive Mucous Production, Change in Mucous Color, Pain with Coughing, Other - Gastrointestinal Gastrointestinal: absent: As Per HPI, Abdominal Pain, Belching, Bloating, Change in Bowel Habits, Change in Stool Character, Coffee Ground Emesis, Constipation, Cramping, Diarrhea, Dyspepsia, Dysphagia, Early Satiety, Excessive Flatus, Fecal Incontinence, Heartburn, Hematemesis, Hematochezia, Loose Stools, Melena, Nausea, Odynophagia, Temesmus, Vomiting, Other - Genitourinary Genitourinary: absent: As Per HPI, Change in Urinary Stream, Difficulty Urinating, Dysuria, Flank Pain, Hematuria, Pyuria, Nocturia, Urinary Incontinence, Urinary Frequency, Urinary Hesitance, Urinary Urgency, Voiding Freq/Small Amts, Freq UTI, Hx Renal/Bladder Calculi, Hx /Renal Surgery, Bladder Distension, Other - Musculoskeletal Musculoskeletal: absent: As Per HPI, Abnormal Gait, Arthralgias, Atrophy, Back Pain, Deformity, Joint Swelling, Limited Range of Motion, Loss of Height, Muscle Cramps, Muscle Weakness, Myalgias, Neck Pain, Numbness, Radiating Pain into Limb, Stiffness, Tingling, Other - Integumentary Integumentary: absent: As Per HPI, Acne, Alopecia, Bleeding Lesions, Change in Hair, Change in Nails, Change in Pigmentation, Changing Lesions, Dry Skin, Erythema, Furuncle, Hirsutism, Lesions, New Lesions, Non-Healing Lesions, Photosensitivity, Pruritus, Rash, Skin Pain, Skin Ulcer, Sores, Striae, Swelling , Unusual Bruising, Wounds, Jaundice, Other - Neurological Neurological: absent: As Per HPI, Abnormal Gait, Abnormal Hearing, Abnormal Movements, Abnormal Speech, Behavioral Changes, Burning Sensations, Confusion, Convulsions, Disequilibrium, Dizziness, Numbness, Focal Weakness, Frequent Falls , Headaches, Lack of Coordination, Loss of Vision, Memory Loss, Paresthesias, Radicular Pain, Restless Legs, Sensory Deficit, Syncope, Tingling, Tremor, Vertigo, Weakness, Other Visual Disturbances, Other - Psychiatric Psychiatric: absent: As Per HPI, Abnormal Sleep Pattern, Anhedonia, Anxiety, Auditory Hallucinations, Behavioral Changes, Change in Appetite, Change in Libido, Confusion, Depression, Difficulty Concentrating, Hallucinations, Homicidal Ideation, Hopelessness, Irritability, Memory Loss, Mood Swings, Panic Attacks, Paranoia, Suicidal Ideation, Visual Hallucinations, Tactile Hallucinations, Other - Endocrine Endocrine: absent: As Per HPI, Change in Body Appearance, Change in Libido, Cold Intolorance, Deepening of Voice, Excessive Sweating, Fatigue, Flushing, Heat Intolorance, Increase in Ring/Shoe/Hat Size, Palpitations, Polydipsia, Polyphagia, Polyuria, Other - Hematologic/Lymphatic Hematologic: absent: As Per HPI, Easy Bleeding, Easy Bruising, Lymphadenopathy, Other Past Patient History - Infectious Disease Hx of Infectious Diseases: None - Tetanus Immunizations Tetanus Immunization: Unknown - Past Medical History & Family History Past Medical History?: Yes - Past Social History Smoking Status: Unknown If Ever Smoked - CARDIAC Hx Angina: Yes Hx Atrial Fibrillation: No Hx Cardia Arrhythmia: No Hx Circulatory Problems: No Hx Congestive Heart Failure: No Hx Heart Attack: No Hx Hypertension: No Hx Hypotension: Yes Hx Internal Defibrillator: No Hx Mitral Valve Prolapse: No Hx Pacemaker: No Hx Peripheral Edema: No Hx Peripheral Vascular Disease: No - PULMONARY Hx Respiratory Disorders: Yes Hx Asthma: Yes (NO ATTACKS) Hx Bronchitis: Yes Hx Lung Cancer: No Hx Pneumonia: Yes Hx Pulmonary Edema: No Hx Pulmonary Embolism: No Hx Respiratory Aspiration: No - NEUROLOGICAL Hx Dizziness: Yes - HEENT Hx HEENT Problems: No - RENAL Hx Chronic Kidney Disease: No - ENDOCRINE/METABOLIC Hx Endocrine Disorders: Yes Hx Systemic Lupus Erythematosus: Yes - HEMATOLOGICAL/ONCOLOGICAL Hx Anemia: Yes - INTEGUMENTARY Hx Dermatological Problems: No - MUSCULOSKELETAL/RHEUMATOLOGICAL Hx Falls: Yes - GASTROINTESTINAL Hx Gastrointestinal Disorders: Yes Hx Ulcer: Yes - GENITOURINARY/GYNECOLOGICAL Hx Genitourinary Disorders: Yes ("starchy urine") - PSYCHIATRIC Hx Psychophysiologic Disorder: Yes Hx Anxiety: Yes Hx Bipolar Disorder: Yes (as per pt) Hx Substance Use: No - SURGICAL HISTORY Hx Surgeries: Yes Hx Herniorrhaphy: Yes - ANESTHESIA Hx Anesthesia: Yes Hx Anesthesia Reactions: No Hx Malignant Hyperthermia: No Has any member of the family had a problem w/ anesthesia?: No Meds Allergies/Adverse Reactions: Allergies Allergy/AdvReac Type Severity Reaction Status Date / Time No Known Allergies Allergy Verified 03/04/17 16:44 - Medications Medications: Current Medications Amlodipine Besylate (Norvasc) 5 mg PO DAILY [facility] Enoxaparin Sodium (Lovenox) 30 mg SC DAILY [facility] Last Admin: 03/06/17 09:09 Dose: 30 mg Home Med (Patient's Own Drops) 0 drop OD Q3 [facility] Hydroxychloroquine Sulfate (Plaquenil) 200 mg PO BID [facility] Last Admin: 03/06/17 09:09 Dose: 200 mg Sodium Chloride (Sodium Chloride 0.9%) 1,000 mls @ 100 mls/hr IV .Q10H [facility] Last Admin: 03/06/17 13:42 Dose: 100 mls/hr Ketorolac Tromethamine (Toradol) 30 mg IVP Q8 PRN PRN Reason: Pain, moderate (4-7) Stop: 03/06/17 21:21 Last Admin: 03/06/17 16:29 Dose: 30 mg Mycophenolate Mofetil (Cellcept) 500 mg PO DAILY [facility] Last Admin: 03/06/17 09:09 Dose: 500 mg Ofloxacin (Ocuflox Ophth 0.3%) 0 ml OD Q3H [facility] Last Admin: 03/06/17 14:35 Dose: 1 drop Pantoprazole Sodium (Protonix Inj) 40 mg IVP DAILY [facility] Last Admin: 03/06/17 09:08 Dose: 40 mg Prednisone (Prednisone Tab) 10 mg PO DAILY [facility] Last Admin: 03/06/17 09:09 Dose: 10 mg Quetiapine Fumarate (Seroquel) 500 mg PO QPM [facility] Last Admin: 03/05/17 17:18 Dose: 500 mg Trazodone HCl (Desyrel) 150 mg PO QPM [facility] Last Admin: 03/05/17 17:17 Dose: 150 mg Valacyclovir HCl (Valtrex) 500 mg PO TID [facility] Last Admin: 03/06/17 13:34 Dose: 500 mg Zolpidem Tartrate (Ambien) 5 mg PO QPM PRN PRN Reason: Insomnia Last Admin: 03/05/17 21:08 Dose: 5 mg Physical Exam - Constitutional Appears: Non-toxic - Eye Exam Eye Exam: Normal appearance - ENT Exam ENT Exam: Mucous Membranes Moist - Neck Exam Neck exam: Positive for: Full Rom - Cardiovascular Exam Cardiovascular Exam: REGULAR RHYTHM - GI/Abdominal Exam GI & Abdominal Exam: Normal Bowel Sounds - Rectal Exam Rectal Exam: Deferred - Extremities Exam Extremities exam: Negative for: pedal edema - Back Exam Back exam: NORMAL INSPECTION - Neurological Exam Neurological exam: Alert, Oriented x3 - Psychiatric Exam Psychiatric exam: Normal Affect - Skin Skin Exam: Normal Color Results - Vital Signs Recent Vital Signs: Last Vital Signs Temp 98.8 F 03/06/17 15:00 Pulse 117 H 03/06/17 15:00 Resp 20 03/06/17 15:00 BP 153/94 H 03/06/17 15:00 Pulse Ox 98 03/06/17 15:00 - Labs Result Diagrams: 03/06/17 06:19 03/06/17 06:19 Labs: Laboratory Results - last 24 hr 03/06/17 03/06/17 03/06/17 06:19 06:19 14:53 WBC 4.1 L RBC 2.74 L Hgb 8.5 L Hct 24.6 L MCV 90.0 MCH 30.9 MCHC 34.3 RDW 18.6 H Plt Count 113 L D MPV 7.3 Neut % (Auto) 79.9 H Lymph % (Auto) 12.8 L Kaufman % (Auto) 5.4 Eos % (Auto) 0.7 Baso % (Auto) 1.2 Neut # 3.3 Lymph # 0.5 L Kaufman # 0.2 Eos # 0.0 Baso # 0.0 Differential Comment ESR Sodium 129 L Potassium 3.9 Chloride 99 Carbon Dioxide 23 Anion Gap 11 BUN 19 Creatinine 1.1 Est GFR ( Amer) > 60 Est GFR (Non-Af Amer) > 60 Random Glucose 84 Calcium 7.5 L Total Bilirubin 0.4 AST 14 L D ALT 32 Alkaline Phosphatase 62 Total Creatine Kinase < 20 L Troponin I C-React Prot High Sens Total Protein 5.4 L Albumin 2.3 L D Globulin 3.1 Albumin/Globulin Ratio 0.7 L 03/06/17 03/06/17 03/06/17 14:53 14:53 16:04 WBC RBC Hgb Hct MCV MCH MCHC RDW Plt Count MPV Neut % (Auto) Lymph % (Auto) Kaufman % (Auto) Eos % (Auto) Baso % (Auto) Neut # Lymph # Kaufman # Eos # Baso # Differential Comment ESR 57 H Sodium Potassium Chloride Carbon Dioxide Anion Gap BUN Creatinine Est GFR ( Amer) Est GFR (Non-Af Amer) Random Glucose Calcium Total Bilirubin AST ALT Alkaline Phosphatase Total Creatine Kinase Troponin I < 0.0120 C-React Prot High Sens > 15.00 H Total Protein Albumin Globulin Albumin/Globulin Ratio - EKG Data EKG Interpreted by: Myself EKG shows normal: Sinus rhythm Assessment & Plan (1) Chest pain Assessment and Plan: the etiology is unclear. The patientwill need evaluationof ventricular function and wall pericardial thickening. I recommend echocardiogram. symptoms do not appear to be due to myocardial ischemia. Status: Acute
[2017-03-07] MEDS: Ofloxacin 0.3% Ophth Soln OD SCH ×8 (00:01→22:09)
[2017-03-07] MEDS: ZIRGAN 0.15% OD SCH ×8 (00:02→22:08)
[2017-03-07] MEDS: Sodium Chloride 0.9% 1,000 ML IV SCH ×4 (01:11→22:06)
[2017-03-07] MEDS: Apap-Butalbital-Caffeine 325-50-40mg Tab PO PRN ×2 (08:26→14:32)
--- NOTE | 2017-03-07 09:54 | CP.PCM.PN ---
Subjective - Date & Time of Evaluation Date of Evaluation: 03/07/17 Time of Evaluation: 09:50 - Subjective Subjective: Medicine Progress Note- Dr Kwan's service Patient seen and examined. Patient was in a foul mood this morning because he says he was unable to sleep well last night. Patient states that he currently has a frontal headache. He is also complaining of anterior chest pain located to the right of his sternum and is worse with movement or palpation. The patient Denies change in vision, focal weakness, dizziness, shortness of breath , cough, and fever. Patient states that he was in the hospital 1 month ago for treatment of pneumonia and that he completed the course of oral antibiotics he was discharged on. The patient follows with Dr Keyes as outpatient for his medications. He has not seen a process development technician in several months for his lupus. The patient saw Dr Staton once but never followed up afterwards. Objective - Vital Signs/Intake and Output Vital Signs (last 24 hours): Temp Pulse Resp BP Pulse Ox 98.6 F 128 H 18 143/92 H 98 03/07/17 07:30 03/07/17 07:30 03/07/17 07:30 03/07/17 07:30 03/07/17 07:30 Intake and Output: 03/07/17 03/07/17 06:59 18:59 Intake Total 1480 Output Total 2150 Balance -670 - Medications Medications: Current Medications Acetaminophen/Butalbital/Caffeine (Fioricet) 1 tab PO Q4 PRN PRN Reason: Headache Last Admin: 03/07/17 08:26 Dose: 1 tab Amlodipine Besylate (Norvasc) 5 mg PO DAILY [facility] Enoxaparin Sodium (Lovenox) 30 mg SC DAILY [facility] Last Admin: 03/06/17 09:09 Dose: 30 mg Home Med (Patient's Own Drops) 0 drop OD Q3 [facility] Last Admin: 03/07/17 06:05 Dose: Not Given Hydroxychloroquine Sulfate (Plaquenil) 200 mg PO BID [facility] Last Admin: 03/06/17 18:21 Dose: 200 mg Sodium Chloride (Sodium Chloride 0.9%) 1,000 mls @ 100 mls/hr IV .Q10H [facility] Last Admin: 03/07/17 02:41 Dose: Not Given Mycophenolate Mofetil (Cellcept) 500 mg PO DAILY [facility] Last Admin: 03/06/17 09:09 Dose: 500 mg Ofloxacin (Ocuflox Ophth 0.3%) 0 ml OD Q3H [facility] Last Admin: 03/07/17 08:19 Dose: 1 drop Pantoprazole Sodium (Protonix Inj) 40 mg IVP DAILY [facility] Last Admin: 03/06/17 09:08 Dose: 40 mg Prednisone (Prednisone Tab) 10 mg PO DAILY [facility] Last Admin: 03/06/17 09:09 Dose: 10 mg Quetiapine Fumarate (Seroquel) 500 mg PO QPM [facility] Last Admin: 03/06/17 18:21 Dose: 500 mg Trazodone HCl (Desyrel) 150 mg PO QPM [facility] Last Admin: 03/06/17 18:21 Dose: 150 mg Valacyclovir HCl (Valtrex) 500 mg PO TID [facility] Last Admin: 03/06/17 18:21 Dose: 500 mg Zolpidem Tartrate (Ambien) 5 mg PO QPM PRN PRN Reason: Insomnia Last Admin: 03/06/17 21:54 Dose: 5 mg - Labs Labs: 03/06/17 06:19 03/06/17 06:19 - Constitutional Appears: Non-toxic, No Acute Distress - Head Exam Head Exam: ATRAUMATIC, NORMOCEPHALIC - Eye Exam Eye Exam: EOMI, Normal appearance, PERRL - ENT Exam ENT Exam: Mucous Membranes Moist, Normal Exam - Neck Exam Neck Exam: Normal Inspection - Respiratory Exam Respiratory Exam: Clear to Ausculation Bilateral, NORMAL BREATHING PATTERN. absent: Rales, Rhonchi, Wheezes, Respiratory Distress - Cardiovascular Exam Cardiovascular Exam: REGULAR RHYTHM, +S1, +S2 Additional comments: right anterior chest- pain reproducible with palpation - GI/Abdominal Exam GI & Abdominal Exam: Soft, Normal Bowel Sounds. absent: Guarding, Rigid, Tenderness - Extremities Exam Extremities Exam: Full ROM, Normal Inspection. absent: Calf Tenderness, Joint Swelling, Pedal Edema, Tenderness - Neurological Exam Neurological Exam: Alert, Awake, CN II-XII Intact, Oriented x3 - Psychiatric Exam Psychiatric exam: Agitated, Normal Affect - Skin Skin Exam: Dry, Intact, Normal Color, Warm Assessment and Plan - Assessment and Plan (Free Text) Assessment: Chest pain Likely musculoskeletal in nature CRP>15, ESR 57 trop negative x2 Cardio consult. Dr. Mejia. recs appreciated. Patient pending ECHO. ketorolac 30 IV q 8 prn pain pt has been tachycardic, with rate in 120s. EKG shows sinus tachy was LVH pattern. Will order VQ scan to rule out PE. f/u ECHO HTN norvasc 10 daily Vitals q4h Hyponatremia IV fluids 100 cc/hr improving hx of lupus rheumatology consult. Dr. Staton. recs appreciated. mycophenolate 500 PO daily plaquenil 200 PO BID prednisone 10 daily CRP>15, ESR 57 Leukopenia common in lupus may reflect active disease continue to monitor iritis/herpes keratitis Oxfloxacin eye drops Valtrex 500 po tid Ziragan drops q 3 Insomnia Ambien 5 po hs hx of depression/bipolar Seroquel 500mg PO HS Trazadone 150mg PO HS Ambien 5mg PO HS Gabapentin 300mg HS Denies suicidal/homicidal ideations Medications prescribed by Dr Keyes as outpatient GI/DVT ppx protonix 40 daily Lovenox 30 daily SCDs bilaterally discussed with Dr. Kwan
[2017-03-07] MEDS: Enoxaparin 30 mg Syringe SC SCH (10:34)
--- NOTE | 2017-03-07 11:27 | NM ---
COMPARISON: March 07, 2017. TECHNIQUE: 12.1 mCi technetium 99-m Xe-133 Gas. 3.4 mCI technetium 99-m MAA administered intravenously. FINDINGS: VENTILATION COMPONENT: Normal. PERFUSION COMPONENT: Heterogeneous distribution of radionuclide. No geographic, segmental, lobar abnormalities apparent on the present examination. IMPRESSION: Low probability ventilation perfusion scan for pulmonary embolism.
--- NOTE | 2017-03-07 12:20 | CARD ---
APPROVED REPORT EKG Measurement Heart [id number] VT [id number] [id number] <Conclusion> Sinus tachycardia Otherwise normal ECG
--- NOTE | 2017-03-07 12:57 | CARD ---
APPROVED REPORT EXAM: Two-dimensional and M-mode echocardiogram with Doppler and color Doppler. Other Information Quality : GoodRhythm : Tachycardia INDICATION Dizziness and Vertigo Chest Pain M-Mode DIMENSIONS RVDd3.12 (2.1-3.2cm)Left Atrium (MM)3.58 (2.5-4.0cm) IVSd1.01 (0.7-1.1cm)Aortic Root3.58 (2.2-3.7cm) LVDd5.21 (4.0-5.6cm)Aortic Cusp Exc.2.44 (1.5-2.0cm) PWd0.81 (0.7-1.1cm)FS (%) 39 % LVDs3.16 (2.0-3.8cm)LVEF (%)69 (>50%) Aortic Valve AI P 1/2 [id number] Mitral Valve MV E Jaaagimo97.9cm/sMV A Vczjqfuk83.4cm/sE/A ratio0.7 TDI E/Lateral E'0.0E/Medial E'0.0 Tricuspid Valve TR Peak Twvrakqj460ch/sTR Peak Gr.[id number] LEFT VENTRICLE The left ventricle is normal size. There is normal left ventricular wall thickness. The left ventricular function is normal. The left ventricular ejection fraction is within the normal range. There is normal LV segmental wall motion. Transmitral Doppler flow pattern is Grade I-abnormal relaxation pattern. No left ventricle thrombus noted on this study. There is no ventricular septal defect visualized. There is no left ventricular aneurysm. There is no mass noted in the left ventricle. RIGHT VENTRICLE The right ventricle is normal size. There is normal right ventricular wall thickness. The right ventricular systolic function is normal. ATRIA The left atrium size is normal. The right atrium size is normal. The interatrial septum is intact with no evidence for an atrial septal defect. AORTIC VALVE The aortic valve is normal in structure. There is trace aortic regurgitation. There is no aortic valvular stenosis. There is no aortic valvular vegetation. MITRAL VALVE The mitral valve is normal in structure. There is no mitral valve stenosis. Mitral regurgitation is mild. TRICUSPID VALVE The tricuspid valve is normal in structure. There is no tricuspid valve regurgitation noted. PULMONIC VALVE The pulmonary valve is normal in structure. There is mild pulmonic valvular regurgitation. GREAT VESSELS The aortic root is normal in size. The ascending aorta is normal in size. The pulmonary artery is normal. The IVC is normal in size and collapses >50% with inspiration. PERICARDIAL EFFUSION There is no pericardial effusion. <Conclusion> Transmitral Doppler flow pattern is Grade I-abnormal relaxation pattern. Mitral regurgitation is mild. There is mild pulmonic valvular regurgitation. LVEF IS 70%.
--- NOTE | 2017-03-07 14:08 | RAD ---
HISTORY: Chest pain COMPARISON: 03/04/2017 FINDINGS: LUNGS: No active pulmonary disease. PLEURA: No significant pleural effusion identified, no pneumothorax apparent. CARDIOVASCULAR: Normal. OSSEOUS STRUCTURES: No significant abnormalities. VISUALIZED UPPER ABDOMEN: Normal. OTHER FINDINGS: None. IMPRESSION: No active disease. No significant interval change compared to the prior examination(s).
[2017-03-07 15:37] LABS: CCP IGG <16 Units (<20)
[2017-03-07 16:57] VITALS: TEMP 98
--- NOTE | 2017-03-07 18:14 | CP.PCM.PN ---
Subjective - Date & Time of Evaluation Date of Evaluation: 03/07/17 Time of Evaluation: 18:10 - Subjective Subjective: patient has no current dyspnea. Objective - Vital Signs/Intake and Output Vital Signs (last 24 hours): Temp Pulse Resp BP Pulse Ox 98 F 108 H 20 131/86 99 03/07/17 15:00 03/07/17 16:00 03/07/17 15:00 03/07/17 15:00 03/07/17 15:00 Intake and Output: 03/07/17 03/07/17 06:59 18:59 Intake Total 1480 797 Output Total 2150 Balance -670 797 - Medications Medications: Current Medications Acetaminophen/Butalbital/Caffeine (Fioricet) 1 tab PO Q4 PRN PRN Reason: Headache Last Admin: 03/07/17 14:32 Dose: 1 tab Amlodipine Besylate (Norvasc) 5 mg PO DAILY [facility] Last Admin: 03/07/17 10:38 Dose: 5 mg Enoxaparin Sodium (Lovenox) 30 mg SC DAILY [facility] Last Admin: 03/07/17 10:34 Dose: 30 mg Gabapentin (Neurontin) 300 mg PO HS [facility] Home Med (Patient's Own Drops) 0 drop OD Q3 [facility] Last Admin: 03/07/17 16:10 Dose: 1 drop Hydroxychloroquine Sulfate (Plaquenil) 200 mg PO BID [facility] Last Admin: 03/07/17 10:34 Dose: 200 mg Sodium Chloride (Sodium Chloride 0.9%) 1,000 mls @ 100 mls/hr IV .Q10H [facility] Last Admin: 03/07/17 13:00 Dose: Not Given Mycophenolate Mofetil (Cellcept) 500 mg PO DAILY [facility] Last Admin: 03/07/17 10:34 Dose: 500 mg Ofloxacin (Ocuflox Ophth 0.3%) 0 ml OD Q3H [facility] Last Admin: 03/07/17 16:10 Dose: 1 drop Pantoprazole Sodium (Protonix Ec Tab) 40 mg PO DAILY [facility] Prednisone (Prednisone Tab) 10 mg PO DAILY [facility] Last Admin: 03/07/17 10:34 Dose: 10 mg Quetiapine Fumarate (Seroquel) 500 mg PO QPM [facility] Last Admin: 03/06/17 18:21 Dose: 500 mg Trazodone HCl (Desyrel) 150 mg PO QPM [facility] Last Admin: 03/06/17 18:21 Dose: 150 mg Valacyclovir HCl (Valtrex) 500 mg PO TID [facility] Last Admin: 03/07/17 13:40 Dose: 500 mg Zolpidem Tartrate (Ambien) 5 mg PO QPM PRN PRN Reason: Insomnia Last Admin: 03/06/17 21:54 Dose: 5 mg - Labs Labs: 03/06/17 06:19 03/06/17 06:19 - Constitutional Appears: Non-toxic - Head Exam Head Exam: NORMAL INSPECTION - Eye Exam Eye Exam: Normal appearance - ENT Exam ENT Exam: Mucous Membranes Moist - Neck Exam Neck Exam: Full ROM - Respiratory Exam Respiratory Exam: Decreased Breath Sounds - Cardiovascular Exam Cardiovascular Exam: REGULAR RHYTHM - GI/Abdominal Exam GI & Abdominal Exam: Normal Bowel Sounds - Rectal Exam Rectal Exam: Deferred - Extremities Exam Extremities Exam: absent: Pedal Edema - Back Exam Back Exam: NORMAL INSPECTION - Neurological Exam Neurological Exam: Alert - Psychiatric Exam Psychiatric exam: Normal Affect - Skin Skin Exam: Normal Color Assessment and Plan (1) Chest pain Assessment & Plan: I reviewed the echocardiogram. There is no evidence of pericardial thickening or effusion. symptoms are likely not cardiac in origin. Status: Acute
[2017-03-07 18:34] LABS: Interpretation Positive (Negative); RNP Interpretation Negative (Negative)
[2017-03-08] MEDS: ZIRGAN 0.15% OD SCH ×5 (01:00→14:08)
[2017-03-08] MEDS: Ofloxacin 0.3% Ophth Soln OD SCH ×4 (06:40→14:08)
[2017-03-08 08:29] VITALS: BP 140/91; RESP 18; O2SAT 96
--- NOTE | 2017-03-08 09:57 | CP.PCM.PN ---
Subjective - Date & Time of Evaluation Date of Evaluation: 03/08/17 Time of Evaluation: 11:01 - Subjective Subjective: Medicine Progress Note- Dr Kwan's service Patient seen and examined. Patient states that he feels well today. Patient's chest pain has improved. He denies shortness of breath, palpitations, abdominal pain, and change in vision. Patient is to be discharged home today per Dr Kwan. The patient should continue all of his home medications as previously prescribed. He will be given new Rx for Norvasc to take daily for blood pressure control and Fioricet for migraine headaches. Patient should follow up with Dr Staton (sand miller ) within 1 week for management of his lupus. He must also follow up with eye doctor for eye surgery as soon as possible. The patient should return to the ED if he has any concerns. Instructions explained to the patient who understands. Objective - Vital Signs/Intake and Output Vital Signs (last 24 hours): Temp Pulse Resp BP Pulse Ox 98 F 102 H 18 140/91 H 96 03/08/17 07:05 03/08/17 07:05 03/08/17 07:05 03/08/17 07:05 03/08/17 07:05 Intake and Output: 03/08/17 03/08/17 06:59 18:59 Intake Total 1110 Output Total 1700 Balance -590 - Medications Medications: Current Medications Acetaminophen/Butalbital/Caffeine (Fioricet) 1 tab PO Q4 PRN PRN Reason: Headache Last Admin: 03/07/17 14:32 Dose: 1 tab Amlodipine Besylate (Norvasc) 5 mg PO DAILY [facility] Last Admin: 03/07/17 10:38 Dose: 5 mg Enoxaparin Sodium (Lovenox) 30 mg SC DAILY [facility] Last Admin: 03/07/17 10:34 Dose: 30 mg Gabapentin (Neurontin) 300 mg PO HS [facility] Last Admin: 03/07/17 22:06 Dose: 300 mg Home Med (Patient's Own Drops) 0 drop OD Q3 [facility] Last Admin: 03/08/17 06:41 Dose: Not Given Hydroxychloroquine Sulfate (Plaquenil) 200 mg PO BID [facility] Last Admin: 03/07/17 18:58 Dose: 200 mg Sodium Chloride (Sodium Chloride 0.9%) 1,000 mls @ 100 mls/hr IV .Q10H [facility] Last Admin: 03/07/17 22:06 Dose: 100 mls/hr Mycophenolate Mofetil (Cellcept) 500 mg PO DAILY [facility] Last Admin: 03/07/17 10:34 Dose: 500 mg Ofloxacin (Ocuflox Ophth 0.3%) 0 ml OD Q3H [facility] Last Admin: 03/08/17 06:40 Dose: Not Given Pantoprazole Sodium (Protonix Ec Tab) 40 mg PO DAILY [facility] Prednisone (Prednisone Tab) 10 mg PO DAILY [facility] Last Admin: 03/07/17 10:34 Dose: 10 mg Quetiapine Fumarate (Seroquel) 500 mg PO QPM [facility] Last Admin: 03/07/17 18:58 Dose: 500 mg Trazodone HCl (Desyrel) 150 mg PO QPM [facility] Last Admin: 03/07/17 18:57 Dose: 150 mg Valacyclovir HCl (Valtrex) 500 mg PO TID [facility] Last Admin: 03/07/17 18:58 Dose: 500 mg Zolpidem Tartrate (Ambien) 5 mg PO QPM PRN PRN Reason: Insomnia Last Admin: 03/07/17 22:05 Dose: 5 mg - Labs Labs: 03/06/17 06:19 03/06/17 06:19 - Constitutional Appears: Non-toxic, No Acute Distress - Head Exam Head Exam: ATRAUMATIC, NORMOCEPHALIC - Eye Exam Eye Exam: EOMI, Normal appearance, PERRL - ENT Exam ENT Exam: Mucous Membranes Moist, Normal Exam - Neck Exam Neck Exam: Normal Inspection - Respiratory Exam Respiratory Exam: Clear to Ausculation Bilateral, NORMAL BREATHING PATTERN. absent: Rales, Rhonchi, Wheezes, Respiratory Distress - Cardiovascular Exam Cardiovascular Exam: REGULAR RHYTHM, +S1, +S2 Additional comments: right anterior chest- pain reproducible with palpation - GI/Abdominal Exam GI & Abdominal Exam: Soft, Normal Bowel Sounds. absent: Guarding, Rigid, Tenderness - Extremities Exam Extremities Exam: Full ROM, Normal Inspection. absent: Calf Tenderness, Joint Swelling, Pedal Edema, Tenderness - Neurological Exam Neurological Exam: Alert, Awake, CN II-XII Intact, Oriented x3 - Psychiatric Exam Psychiatric exam: Agitated, Normal Affect - Skin Skin Exam: Dry, Intact, Normal Color, Warm Assessment and Plan - Assessment and Plan (Free Text) Assessment: Chest pain Likely musculoskeletal in nature, improving CRP>15, ESR 57 trop negative x2 Cardio consult. Dr. Mejia. recs appreciated. Per steel burner, chest pain is likely not cardiac in nature. ketorolac 30 IV q 8 prn pain pt has been tachycardic, with rate in 120s. EKG shows sinus tachy was LVH pattern. VQ scan negative for PE. 03/07 ECHO: LV EF 70% HTN Well controlled Norvasc 10 daily Vitals q4h Hyponatremia IV fluids 100 cc/hr improving hx of lupus rheumatology consult. Dr. Staton. recs appreciated. mycophenolate 500 PO daily plaquenil 200 PO BID prednisone 10 daily CRP>15, ESR 57 Leukopenia common in lupus may reflect active disease continue to monitor iritis/herpes keratitis Oxfloxacin eye drops Valtrex 500 po tid Ziragan drops q 3 Insomnia Ambien 5 po hs hx of depression/bipolar Seroquel 500mg PO HS Trazadone 150mg PO HS Ambien 5mg PO HS Gabapentin 300mg HS Denies suicidal/homicidal ideations Medications prescribed by Dr Keyes as outpatient GI/DVT ppx protonix 40 daily Lovenox 30 daily SCDs bilaterally discussed with Dr. Kwan
[2017-03-08] MEDS ORDERED: Pantoprazole 40 mg EC Tab PO SCH (10:00)
[2017-03-08] MEDS: Enoxaparin 30 mg Syringe SC SCH (10:31)
[2017-03-08] MEDS: Apap-Butalbital-Caffeine 325-50-40mg Tab PO PRN (12:17)
[2017-03-08 13:22] LABS: ANA TITER 1:40
[2017-03-08 16:39] VITALS: PULSE 108
[2017-03-08 21:17] LABS: B2 GLYCOPROTEIN I AB(IGA) <9 SAU (<=20); B2 GLYCOPROTEIN I AB(IGG) <9 SGU (<=20); B2 GLYCOPROTEIN I AB(IGM) <9 SMU (<=20)
[2017-03-08 22:18] LABS: CARDIOLIPIN AB (IGA) <11 APL (<=11)
[2017-03-09 00:17] LABS: PHOSPHATIDYLSERINE AB IGA <20 U/mL (<20)
== END 2017-03-08 16:20 | disposition home or self-care (01) | DRG 313 ==
LOC: C.ER 16:26 → C.9E 18:19 → C.9I 03-05 00:31 → OBSVTOIN 03-05 18:18 → C.9I 03-06 12:10 → C.6T 03-06 14:48
PROVIDERS: ADMIT Internal Medicine Pulmonary Disease; ATTEND Internal Medicine Pulmonary Disease
DX: R07.89 Other chest pain (principal); E86.0 Dehydration; E87.8 Other disorders of electrolyte and fluid balance, not elsewhere classified; M32.9 Systemic lupus erythematosus, unspecified; B00.52 Herpesviral keratitis; E87.1 Hypo-osmolality and hyponatremia; B00.51 Herpesviral iridocyclitis; D72.819 Decreased white blood cell count, unspecified; F31.9 Bipolar disorder, unspecified; G43.909 Migraine, unspecified, not intractable, without status migrainosus; G47.00 Insomnia, unspecified; I10 Essential (primary) hypertension; J45.909 Unspecified asthma, uncomplicated; R00.0 Tachycardia, unspecified; F32.9 Major depressive disorder, single episode, unspecified; Z87.01 Personal history of pneumonia (recurrent)

== ENCOUNTER 2017-08-14 16:34 | Emergency (ER) | payer MEDICARE ==
[2017-08-14 16:35] VITALS: BMI 22.7
[2017-08-14] MEDS ORDERED: Aspirin 325 mg EC Tablets PO STA (18:43)
[2017-08-14] MEDS ORDERED: DiphenhydrAMINE 50 mg/ml Inj IVP STA (18:45)
[2017-08-14 19:05] LABS: BASO % 0.4 % (0.0-2.0); EOS % 0.4 % (0.0-4.0); HEMOGLOBIN 12.4 g/dL (12.0-18.0); LYMPH # 0.9 K/uL (1.0-4.3); LYMPH % 16.1 % (20.0-40.0); MEAN CELL VOLUME 96.1 fL (80.0-94.0); MEAN CORPUSCULAR HEMOGLOBIN 33.3 pg (27.0-31.0); MEAN CORPUSCULAR HGB CONC 34.7 g/dL (33.0-37.0); MEAN PLATELET VOLUME 7.7 fL (7.2-11.7); MONO # 0.4 K/uL (0.0-0.8); MONO % 7.1 % (0.0-10.0); NEUT # 4.2 K/uL (1.8-7.0); RBC 3.73 Mil/uL (4.40-5.90); RED CELL DISTRIBUTION WIDTH 13.1 % (11.5-14.5); WHITE BLOOD COUNT 5.6 K/uL (4.8-10.8)
[2017-08-14 19:10] LABS: URINE BACTERIA RARE (<OCC); URINE BILIRUBIN NEGATIVE (NEGATIVE); URINE BLOOD 1+ (NEGATIVE); URINE CLARITY Clear (Clear); URINE COLOR Yellow (YELLOW); URINE GLUCOSE (UA) NORMAL (Normal); URINE LEUKOCYTE ESTERASE NEG Leu/uL (Negative); URINE PROTEIN 2+ mg/dL (NEGATIVE); URINE UROBILINOGEN NORMAL mg/dL (0.2-1.0)
[2017-08-14] MEDS ORDERED: Aspirin 325 mg EC Tablets PO ONE (19:16)
[2017-08-14] MEDS ORDERED: DiphenhydrAMINE 50 mg/ml Inj ONE (19:16)
[2017-08-14 19:17] LABS: ALB/GLOB RATIO 1.1 (1.0-2.1); ALBUMIN 3.8 g/dL (3.5-5.0); ALT/SGPT 24 U/L (21-72); AST/SGOT 24 U/L (17-59); BLOOD UREA NITROGEN 19 mg/dL (9-20); CALCIUM 8.8 mg/dl (8.6-10.4); GFR AFRICAN-AMERICAN > 60; GFR NON-AFRICAN AMERICAN > 60; LIPASE 98 U/L (23-300)
[2017-08-14 19:22] LABS: BARBITURATES, UR NEGATIVE (NEGATIVE); BENZODIAZEPINES, UR NEGATIVE (NEGATIVE); D DIMER < 200 ng/mlDDU (0-243); OPIATES, UR NEGATIVE (NEGATIVE); PARTIAL THROMBOPLASTIN TIME 26 SECONDS (21-34); PHENCYCLIDINE, UR NEGATIVE (NEGATIVE); PROTHROMBIN TIME 11.5 SECONDS (9.7-12.2)
--- NOTE | 2017-08-14 20:04 | RAD ---
Chest x-ray single frontal view History: Chest pain. Comparison: None available. Findings: No focal infiltrate or effusion. Biapical pleural thickening. Right hilar prominence. Heart size within normal limits. Degenerative changes in the spine. Impression: No focal infiltrate or effusion. Biapical pleural thickening. Right hilar prominence.
[2017-08-14 20:56] VITALS: O2SAT 98
--- NOTE | 2017-08-14 21:17 | CT ---
EXAM: CT Abdomen and Pelvis Without Intravenous Contrast EXAM DATE/TIME: 08/14/2017 7:57 PM CLINICAL HISTORY: 52 years old, male; Pain and signs and symptoms; Other: Hematuria; Abdominal pain; Flank; Right; Additional info: Right flank pain. Microscopic hematuria TECHNIQUE: Axial computed tomography images of the abdomen and pelvis without intravenous contrast. All CT scans at this facility use one or more dose reduction techniques, viz.: automated exposure control; ma/kV adjustment per patient size (including targeted exams where dose is matched to indication; i.e. head); or iterative reconstruction technique. Coronal and sagittal reformatted images were created and reviewed. COMPARISON: No relevant prior studies available. FINDINGS: LUNG BASES: No significant abnormality seen. HEART: Heart appears mildly enlarged. ABDOMEN: LIVER: 7 mm low density liver lesion, most likely a cyst. GALLBLADDER AND BILE DUCTS: No CT evidence of acute cholecystitis. No evidence of significant biliary ductal dilatation. PANCREAS: No CT evidence of acute pancreatitis. SPLEEN: No acute abnormality of the spleen identified. ADRENALS: No acute abnormality of the adrenal glands identified. KIDNEYS AND URETERS: Indeterminate 6 mm hyperdense lesion in the left kidney, image 60 of series 3. This could represent a hyperdense cyst, but a solid lesion is not definitely excluded. Recommend further evaluation with renal ultrasound or renal protocol CT or MRI, on a nonemergent basis. No renal stones, hydronephrosis, or hydroureter seen. STOMACH AND BOWEL: Retained stool throughout the right hemicolon. The right hemicolon is mildly dilated, without evidence of transition point. Findings are most likely due to fecal retention/constipation. No evidence of fecal impaction. Duodenal diverticulum noted. Otherwise, no significant abnormality of the bowel is identified. No evidence of bowel obstruction. PELVIS: APPENDIX: Appendix is seen, and is within normal limits in appearance. BLADDER: No acute abnormality of the bladder identified. REPRODUCTIVE: No acute abnormality of the reproductive organs is seen. ABDOMEN and PELVIS: INTRAPERITONEAL SPACE: No evidence of free intraperitoneal air or fluid. BONES/JOINTS: Bilateral pars defects at L5. Grade 1 spondylolisthesis of L5 over S1. SOFT TISSUES: No acute abnormality of the visualized soft tissues is seen. VASCULATURE: No evidence of abdominal aortic aneurysm. No evidence of periaortic hemorrhage. LYMPH NODES: No evidence of diffuse lymphadenopathy. IMPRESSION: - No evidence of significant acute process. There is no evidence of nephrolithiasis or obstructive uropathy. - Colonic findings which are most likely secondary to fecal retention/constipation. - Incidental small indeterminate hyperdense renal lesion. See above recommendations. - See above for remaining findings.
--- NOTE | 2017-08-14 21:32 | C.PDOC ---
History Of Present Illness Pt c/o diffuse rash. Time Seen by Provider: 08/14/17 18:21 Chief Complaint (Nursing): Abnormal Skin Integrity History Per: Patient Onset/Duration Of Symptoms: Days (about 2 weeks) Current Symptoms Are (Timing): Still Present Quality Of Symptoms: Itching Severity: Moderate Additional History Per: Prior Records Past Medical History Reviewed: Historical Data, Nursing Documentation, Vital Signs Vital Signs: Last Vital Signs Temp 98.5 F 08/14/17 21:56 Pulse 93 H 08/14/17 21:56 Resp 18 08/14/17 21:56 BP 139/93 H 08/14/17 21:56 Pulse Ox 98 08/14/17 22:19 - Medical History PMH: Anemia, Anxiety, Asthma (NO ATTACKS), Bipolar Disorder (as per pt), Bronchitis, Depression, Pneumonia Surgical History: Hernia Repair (ventral) - [facility] CLOSED ENDOSCOPIC BIOPSY OF LARGE INTESTINE (02/22/05) INSERT INDWELLING CATH (10/13/11) Family History: States: Unknown Family Hx - Social History Hx Alcohol Use: No (as per pt) Hx Substance Use: No - Immunization History Hx Tetanus Toxoid Vaccination: Yes Hx Influenza Vaccination: No Hx Pneumococcal Vaccination: No Review Of Systems Except As Marked, All Systems Reviewed And Found Negative. Constitutional: Negative for: Fever, Weakness ENT: Negative for: Mouth Pain, Mouth Swelling, Throat Swelling Cardiovascular: Positive for: Chest Pain Respiratory: Negative for: Cough, Shortness of Breath, Hemoptysis Gastrointestinal: Positive for: Abdominal Pain (right flank). Negative for: Vomiting Genitourinary: Negative for: Dysuria, Hematuria Musculoskeletal: Negative for: Neck Pain Skin: Positive for: Rash Neurological: Negative for: Weakness, Numbness Physical Exam - Physical Exam Appears: Non-toxic, No Acute Distress Skin: Warm, Dry, Rash (diffuse erythematous maculopapular rash) Head: Atraumatic, Normacephalic Eye(s): bilateral: Normal Inspection, PERRL, EOMI Oral Mucosa: Moist, No Drooling, No Trismus Throat: Normal Neck: Normal ROM, Supple Cardiovascular: Rhythm Regular Respiratory: Normal Breath Sounds, No Accessory Muscle Use Gastrointestinal/Abdominal: Soft, No Tenderness Back: CVA Tenderness (right) Extremity: Normal ROM, No Pedal Edema Neurological/Psych: Oriented x3, Normal Speech, Normal Cognition, Normal Motor, Normal Sensation ED Course And Treatment - Laboratory Results Result Diagrams: 08/14/17 19:00 08/14/17 19:00 Lab Interpretation: No Acute Changes ECG: Interpreted By Me, Viewed By Me ECG Rhythm: Sinus Rhythm ECG Interpretation: No Acute Changes Rate From EC O2 Sat by Pulse Oximetry: 98 Pulse Ox Interpretation: Normal - Radiology CXR: Viewed By Me, Read By Radiologist CXR Interpretation: Yes: No Acute Disease - CT Scan/US CT abd/pelv Other Rad Studies (CT/US): Read By Radiologist, Radiology Report Reviewed CT/US Interpretation: IMPRESSION: - No evidence of significant acute process. There is no evidence of. nephrolithiasis or obstructive uropathy. - Colonic findings which are most likely secondary to fecal. retention/constipation. - Incidental small indeterminate hyperdense renal lesion. See above. recommendations. - See above for remaining findings. Progress - Interventions Interventions:: Observation - Medications Administered Oral: H-2 kristian Intravenous: Antihistamine (H-1), Corticosteroid - Data Reviewed Data Reviewed: Lab, Diagnostic imaging, Old records - Patient Status Patient status: Mostly improved - Continuity of Care Discussed patient case with:: Patient, ED Nurse - Patient Plan Patient Plan: Discharge, F/U with PCP, Continue present meds Disposition Counseled Patient/Family Regarding: Studies Performed, Diagnosis, Need For Followup, Rx Given - Disposition Referrals: Isael Kwan MD [Staff Provider] - Disposition: HOME/ ROUTINE Disposition Time: 22:19 Condition: IMPROVED Additional Instructions: Take Benadryl as needed for itching. Follow up with your doctor this week for further evaluation and treatment. Return to the ER if you develop trouble breathing or swallowing, fever, worsening of symptoms or if you have any other concerns. Prescriptions: Methylprednisolone [Medrol] 1 dose PO DAILY #1 packet Instructions: Skin Rash (DC) Forms: [facility] ([place]) - Clinical Impression Clinical Impression: Pruritic erythematous rash
[2017-08-14 21:57] VITALS: BP 139/93; PULSE 93; RESP 18; TEMP 98.5
--- NOTE | 2017-08-15 21:48 | CARD ---
APPROVED REPORT EKG Measurement Heart [id number] <Conclusion> Normal sinus rhythm Normal ECG
== END 2017-08-14 22:36 | disposition home or self-care (01) ==
LOC: C.ER 16:34
DX: R21 Rash and other nonspecific skin eruption (principal); L53.9 Erythematous condition, unspecified
CPT/HCPCS: 71045; 74176; 80053; 81001; 83690; 84484; 85025; 85378; 85610; 85730; 93005; 96374; 96375; 99285; G0480; J1200; J2930